=== PATIENT | male | born 1940 | race Caucasian/White ===

== ENCOUNTER 2022-09-13 17:33 | Emergency (ER) | payer OTHER, MEDICARE, BC ==
[~2022-09-13] VITALS: Ht 177.8 cm; Wt 79.5 kg
[2022-09-13 18:14] VITALS: BP 110/71
[2022-09-13] MEDS ORDERED: ofloxacin 0.33% 5ml ophthalmic drops RIGHTEYE ONE (21:00)
== END 2022-09-13 21:26 | disposition home or self-care (01) ==
LOC: ER 17:33
DX: S05.01XA Injury of conjunctiva and corneal abrasion without foreign body, right eye, initial encounter (principal); H57.11 Ocular pain, right eye; I10 Essential (primary) hypertension; Z90.49 Acquired absence of other specified parts of digestive tract; Z98.890 Other specified postprocedural states; X58.XXXA Exposure to other specified factors, initial encounter; Y93.89 Activity, other specified; Y92.89 Other specified places as the place of occurrence of the external cause; Y99.8 Other external cause status
CPT/HCPCS: 99283

== ENCOUNTER 2025-05-20 12:27 | Emergency (ER) | payer OTHER, MEDICARE, BC ==
[~2025-05-20] VITALS: Ht 177.8 cm; Wt 79.5 kg
--- NOTE | 2025-05-20 12:42 | ELECTROCARDIOGRAPH REPORT ---
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 Christian Martel Measurements Intervals [place] Rate: 59 P: 56 MS: 161 QRS: -9 QRSD: 96 T: -10 QT: 434 QTc: 430 Interpretive Statements Sinus bradycardia Low voltage, precordial leads Abnormal T, consider ischemia, diffuse leads Baseline wander in lead(s) I,II,aVR Electronically Signed On 05-28-2025 18:42:[address] Christian Martel Please click the below link to view image of tracing.
[2025-05-20 12:48] LABS: BASOPHILS # (AUTO) 0.1 X10'3 (0-0.2); BASOPHILS % (AUTO) 0.9 % (0-1); EOSINOPHILS # (AUTO) 0.2 X10'3 (0-0.9); EOSINOPHILS % (AUTO) 3.6 % (0-6); HEMATOCRIT 43.6 % (42.0-52.0); HEMOGLOBIN 14.8 g/dl (14.0-17.9); LYMPHOCYTES # (AUTO) 1.5 X10'3 (1.1-4.8); LYMPHOCYTES % (AUTO) 23.6 % (21-51); MEAN CORPUSCULAR HEMOGLOBIN 30.9 PG (27.0-31.0); MEAN CORPUSCULAR HGB CONC 34.1 g/dL (33.0-36.5); MEAN CORPUSCULAR VOLUME 90.8 FL (78-98); MEAN PLATELET VOLUME 8.3 FL (7.4-10.4); MONOCYTES # (AUTO) 0.5 X10'3 (0-0.9); MONOCYTES % (AUTO) 7.4 % (2-12); NEUTROPHILS % (AUTO) 64.5 % (42-75); PLATELET COUNT 142 X10'3 (140-440); RED CELL DISTRIBUTION WIDTH 13.1 % (11.5-14.5); WHITE BLOOD COUNT 6.2 X10'3 (4.5-11.0)
--- NOTE | 2025-05-20 13:05 | RADIOLOGY REPORT ---
CHEST RADIOGRAPH Indication: CP Technique: Single frontal view of the chest was obtained COMPARISON: None FINDINGS: Lines and Tubes: None Lungs: Clear Pleura: No effusion. No pneumothorax. Cardiomediastinal contours: Unremarkable Bones: Chronic appearing left rib fractures. IMPRESSION: No acute disease.
[2025-05-20 13:07] LABS: ALBUMIN 3.8 G/DL (3.4-5.0); ANION GAP 6 (8-16); BLOOD UREA NITROGEN 20 MG/DL (7-18); BUN/CREATININE RATIO 20.6 (10.0-20.0); CALCIUM 9.1 MG/DL (8.5-10.1); CHLORIDE 107 MMOL/L (99-107); CREATININE 0.97 MG/DL (0.60-1.10); GLUCOSE 129 MG/DL (70-104); POTASSIUM 4.7 MMOL/L (3.5-5.1); PRO BRAIN NATRIURETIC PEPTIDE 2053 PG/ML (0-450); SODIUM 143 MMOL/L (135-145); TOTAL CARBON DIOXIDE 30.1 MMOL/L (24-32); eCRCL 60 ML/MIN; eGFR 74 ML/MIN
[2025-05-20 15:08] VITALS: TEMP 98.3
--- NOTE | 2025-05-20 15:42 | Physician Documentation ---
History of Present Illness ~ General Chief Complaint: See Chief Complaint Stated Complaint: SEE CHIEF/MULTIPLE MED COMPLAINTS W THROAT Time Seen by MD: 15:11 History of Present Illness Initial Comments 84-year-old male who presents with concern for an abnormal carotid artery ultrasound that was done today. He tells me that he had an outpatient screening ultrasound of his carotid arteries. They told him he had a critical finding and needed to see his doctor within 24 hours. [facility]. He was told to come to the emergency department. Per paperwork with the patient, he had a carotid artery ultrasound. The right carotid artery had PSV 236, an EDV 65. Left internal carotid already had PSV 309, EDV 91 Medication Reconciliation Allergies: Coded Allergies: No Known Allergies (Unverified , 09/13/22) Past Medical History Past Medical History: Hypertension Past Surgical History: cholecystectomy, orthopedic surgeries Lives In: Home Occupation: retired Review of Systems Neurological: Denies: speech problem, headache, dizziness Physical Exam Physical Exam Vital Signs: Temperature: 98.3, Source: Oral, Heart Rate: 54, Respiratory Rate: 14, BP: 159/81, Pulse Oximetry: 98, Weight: 79.550 Oxygen Flow Rate: 0 Physical Exam General: This is a healthy and well-appearing older man sitting calmly in bed HEENT: Atraumatic, oropharynx is moist Heart: Regular rate and rhythm, normal-appearing peripheral perfusion Lungs: Clear breath sounds bilateral, normal work of breathing, normal oxygen saturation on room air Extremities: Warm and well-perfused Neuro: Alert and oriented, no focal deficits Psychiatric: Calm and cooperative with exam Progress Results/Orders Results/Orders Orders - DAYNE YODER MD Chest,Single View (05/20/25 12:33) Monitor (05/20/25 12:33) Saline Lock (05/20/25 12:33) Oxygen (05/20/25 12:33) Cbc/Diff (05/20/25 12:33) Hs Troponin I W Calculations (05/20/25 12:33) Completed Orders - DAYNE YODER MD Chest,Single View (05/20/25 12:33) BMP (05/20/25 12:33) PBNP (05/20/25 12:33) Electrocardiogram (05/20/25 12:33) Hs Troponin I W Calculations (05/20/25 14:33) Vital Signs 05/20/25 05/20/25 05/20/25 05/20/25 12:28 15:08 15:50 17:12 Temp 98.3 98.3 Pulse 60 54 55 87 Resp 16 14 14 16 B/P (MAP) 181/83 159/81 (107) 158/74 (102) 184/96 Pulse Ox 99 98 100 96 O2 Flow Rate 0 Laboratory Tests Test 05/20/25 12:38 05/20/25 14:35 White Blood Count 6.2 Red Blood Count 4.80 Hemoglobin 14.8 Hematocrit 43.6 Mean Corpuscular Volume 90.8 Mean Corpuscular Hemoglobin 30.9 Mean Corpuscular Hemoglobin Concent 34.1 Red Cell Distribution Width 13.1 Platelet Count 142 Mean Platelet Volume 8.3 Neutrophils (%) (Auto) 64.5 Lymphocytes (%) (Auto) 23.6 Monocytes (%) (Auto) 7.4 Eosinophils (%) (Auto) 3.6 Basophils (%) (Auto) 0.9 Neutrophils # (Auto) 4.0 Lymphocytes # (Auto) 1.5 Monocytes # (Auto) 0.5 Eosinophils # (Auto) 0.2 Basophils # (Auto) 0.1 Sodium Level 143 Potassium Level 4.7 Chloride Level 107 Carbon Dioxide Level 30.1 Anion Gap 6 L Blood Urea Nitrogen 20 H Creatinine 0.97 Estimated GFR/1.73 m2 74 BUN/Creatinine Ratio 20.6 H Glucose Level 129 H Calcium Level 9.1 Troponin I High Sensitivity 12 13 Pro-B-Type Natriuretic Peptide 2053 H Albumin 3.8 Chemistry Comments Troponin I High Sens Percent Delta 8 Troponin I Hi Sens Absolute Change 1 EKG/XRAY/CT/US/VASC/MRI Chest X-Ray : Additional Comments I personally reviewed the x-ray, and it shows: No acute process including no consolidation, pulmonary edema, or widening of the mediastinum Consults/PCP Consults/PCP : Additional Comment Consult: I I spoke to our on-call vascular surgeon, Dr. Saavedra. I showed him the results of the carotid ultrasound. He recommends outpatient follow up, no acute intervention today. Medical Decision Making Differential Diagnosis The patient presents with concern regarding an outpatient carotid ultrasound that shows significant stenosis. He is otherwise asymptomatic including no symptoms of TIA or stroke. Labs ordered from triage are unremarkable. Vascular surgery was consulted as above. The patient will be discharged with a plan to follow [facility] with [facility] tomorrow to arrange vascular surgery clinic follow up, or contact our vascular surgery clinic to arrange an appointment. Return precautions given if he does develop any stroke-like symptoms. Departure Time of Disposition: 16:44 Disposition: 01 HOME / SELF CARE / HOMELESS Impression: Primary Impression: Carotid artery disease Condition: Stable Discharge Instructions: Carotid Artery Disease Referrals: NO PRIMARY CARE PROVIDER (PCP) CLAUDIA SAAVEDRA MD Education Educated: Patient Educated regarding: diagnosis, need for follow up Signature Scribe Signature: na Attestation: DAYNE Dwyer MD May 20, 2025 15:42
[2025-05-20 17:12] VITALS: BP 184/96; PULSE 87; RESP 16; O2SAT 96
== END 2025-05-20 17:14 | disposition home or self-care (01) ==
LOC: ER 12:28
DX: I77.9 Disorder of arteries and arterioles, unspecified (principal); R06.02 Shortness of breath; I10 Essential (primary) hypertension
CPT/HCPCS: 36415; 71045; 80048; 83880; 84484; 85025; 93005; 99285

== ENCOUNTER 2025-07-29 11:10 | Outpatient (CLI) | payer MEDICARE, BC ==
[~2025-07-29 11:10] MED LIST: ASPI-612 PO; ATOR40TA PO; CLOP-32 PO
--- NOTE | 2025-07-29 13:27 | VASCULAR REPORT ---
CAROTID DOPPLER ULTRASOUND HISTORY: Left endarterectomy COMPARISON: None TECHNIQUE: Real time rodríguez scale, color Doppler, and spectral duplex images are obtained through the c arotid and vertebral arteries. Findings: Peak systolic velocity right internal carotid artery is 243 cm/s and right common carotid artery is 8 2 cm/s. Ratio is 3.2. Antegrade flow noted in right vertebral artery. Moderate atherosclerotic plaque noted within the right carotid arterial system. Peak systolic velocity left internal carotid artery is 81 cm/s and left common carotid artery is 86 c m/s. Ratio is 0.9. Antegrade flow but increased velocity noted in left vertebral artery. Mild atheros clerotic plaque noted within the left carotid arterial system. Impression: 1. Greater than 70% stenosis of the right internal carotid arterial system. 2. Antegrade flow within bilateral vertebral arteries., with elevated velocity in the left vertebral artery.
== END 2025-07-29 23:59 | disposition home or self-care (01) ==
LOC: VAS 11:10
PROVIDERS: ATTEND Surgery
DX: I65.23 Occlusion and stenosis of bilateral carotid arteries (principal)
CPT/HCPCS: 93880